=== PATIENT | male | born 2000 | race African-American/Black ===

== ENCOUNTER 2019-10-31 22:01 | Emergency (ER) | payer SELFPAY ==
[~2019-10-31] VITALS: Ht 160 cm; Wt 65.9 kg
[2019-10-31 22:03] VITALS: Ht 160 cm; Wt 65.9 kg
[2019-10-31] MEDS ORDERED: STERAPRED DS 1010 MG PO (23:01)
[2019-10-31] MEDS ORDERED: ATARAX 25 MG TA25 MG PO (23:01)
[2019-10-31] MEDS ORDERED: EPIPEN JR0.15 MG/01 IM (23:05)
[2019-10-31 23:18] VITALS: BP 126/84
== END 2019-10-31 23:18 | disposition home or self-care (01) ==
LOC: D.ER 22:01
DX: T78.40XA Allergy, unspecified, initial encounter (principal); X58.XXXA Exposure to other specified factors, initial encounter; R21 Rash and other nonspecific skin eruption